=== PATIENT | female | born 1970 | race African-American/Black ===

== ENCOUNTER 2023-01-23 08:07 | Outpatient (REF) | payer BC, SELFPAY ==
--- NOTE | ~2023-01-23 | XR_ITS ---
EXAMINATION: XR KNEE, RIGHT CLINICAL INFORMATION: Pain in right knee COMPARISON: None available. TECHNIQUE: Four views of the right knee. FINDINGS: The patient is status post right total knee replacement with patellar button. There is no fracture or periprosthetic lucency. No joint effusion. Joint spaces are maintained. No abnormal soft tissue calcification. XR/XR knee RT 3V IMPRESSION: Right total knee replacement without hardware complication.
--- NOTE | ~2023-01-23 | XR_ITS ---
EXAMINATION: XR KNEE, LEFT CLINICAL INFORMATION: Pain in left knee COMPARISON: None available. TECHNIQUE: Four views of the left knee. FINDINGS: There is a left total knee replacement with patellar button. There is no fracture or periprosthetic lucency. 0.7 cm ossific or calcific density is seen posterior-lateral to the knee joint. This raises the question of a loose body within the joint. XR/XR knee LT 3V IMPRESSION: 1. Left total knee replacement without evidence of hardware complication. 2. 0.7 cm ossific or calcific density posterior-lateral to the knee joint raises the question of a loose body within the joint.
== END 2023-01-23 08:08 | disposition home or self-care (01) ==
LOC: HO.HOSX 08:07
PROVIDERS: Visit Provider Orthopaedic Surgery
DX: M25.561 Pain in right knee (principal); M25.562 Pain in left knee
CPT/HCPCS: 73562

== ENCOUNTER 2023-01-23 11:53 | Outpatient (AMB) | payer BC, SELFPAY ==
--- NOTE | 2023-01-23 11:58 | MHC.OFFVIS ---
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 She reports mild to moderate discomfort in both of her knees, right greater than left. She did do quite a bit of dancing while she was in [place] over the last few weeks. She denies any fevers or chills. She does not take any medicines for her discomfort. 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 Physical Exam Vital Signs: BMI result Body Mass Index 39.7 Const Other: Well-nourished well-developed very friendly female awake alert and oriented x3 in no acute distress Extrem Other: Bilateral lower extremity examination shows good capillary refill, no skin lesions noted, normal sensation light touch Bilateral knee examination shows that the surgical incisions are well healed, no erythema, full active extension and flexion to 120 degrees, her patellae track well Results Reviewed Results Reviewed: X-rays of the patient's bilateral knees taken today show total knee arthroplasties in good position with no signs of loosening, no acute bony abnormalities Assessment & Plan Assessment & Plan (1) Right knee pain: Code(s): M25.561 - Pain in right knee (2) Left knee pain: Code(s): M25.562 - Pain in left knee Plan Ms. Payne continues to do well after undergoing bilateral total knee arthroplasty surgeries. She will continue with her home exercise program. She does noted take antibiotics before any dental work. She will contact me prior to her follow-up appointment in 3 months should any questions or concerns arise. Feel free to call me at any time should questions regarding her orthopedic management arise. I spent 22 minutes in reviewing the patient's records and imaging studies, seeing the patient and documenting in the medical record. Orders: Orders XR knee LT 3V Today M25.562 - Pain in left knee XR knee RT 3V Today M25.561 - Pain in right knee Medications: New amoxicillin Take four tabs (2,000 mg) one hour before any dental work 500 mg PO ONCE 20 tabs 0RF oxycodone-acetaminophen 5-325 mg (Percocet) Partial Fill upon patient request. 1 tab PO Q8H PRN 30 tabs 0RF pain Coding Level of Care Code Est Pt Level 2 (13178) Diagnoses Right knee pain M25.561 Left knee pain M25.562
[2023-01-23 12:17] VITALS: BMI 39.7
== END 2023-01-23 12:49 | disposition home or self-care (01) ==
PROVIDERS: PCP Pediatrics; Visit Provider Orthopaedic Surgery
DX: M25.561 Pain in right knee (principal); M25.562 Pain in left knee
CPT/HCPCS: 99212

== ENCOUNTER 2023-03-13 08:46 | Outpatient (AMB) | payer BC, SELFPAY ==
--- NOTE | 2023-03-13 08:48 | A.OFFVIS_ITS ---
Intake Intake Visit Reasons: OV- RT Knee pain Intake Note: Pt presents to the office today for right knee pain. Pt states she fell on her right knee on February and is having pain and swelling since falling. She states that knee has always been the more painful but since falling its worse. Pt states she has been elevating and icing her knee and she states it helped slightly but its still swollen and tender. She states she just wants to make sure everything is okay since she fell directly on her right knee. 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 Physical Exam Const Other: Well-nourished well-developed very friendly female awake alert and oriented x3 in no acute distress Extrem Other: Bilateral lower extremity examination shows good capillary refill, no skin lesions noted, normal sensation light touch Right knee examination shows that the surgical incision is well healed, no eryt ev, full active extension flexion 115 degrees, mild tenderness over her patellar tendon, no instability Results Reviewed Results Reviewed: X-rays of the patient's right knee taken today show a total knee arthroplasty good position with no signs of loosening, no acute bony abnormalities Assessment & Plan Assessment & Plan (1) Right knee pain: Code(s): M25.561 - Pain in right knee Plan: Ms. Payne presents with right knee pain and swelling most likely due to soft tissue and bony contusion after recently falling directly onto her right knee. She does not seem to have suffered any damage to her total knee arthroplasty. She is encouraged to continue with her home stretching program to prevent stiffness. The patient has states that she is bothered by the fact that is her right knee is ?more knock kneed? Then as her left knee. She questions whether not it is another surgery could correct this. I discussed with the patient the fact that is if further surgery did place her knee into too much varus alignment it could possibly shorten the life span of the arthroplasty especially in light of her size. Patient questions whether not she should seen a 2nd opinion regarding further surgery close to her home at [facility]. I have no problem with this. She will contact me prior to her annual follow-up appointment should any further questions or concerns arise. Orders: Orders XR knee RT 3V Today M25.561 - Pain in right knee Coding Level of Care Code Est Pt Level 2 (69457) Diagnoses Right knee pain M25.561
== END 2023-03-13 09:30 | disposition home or self-care (01) ==
PROVIDERS: PCP Pediatrics; Visit Provider Orthopaedic Surgery
DX: M25.561 Pain in right knee (principal)
CPT/HCPCS: 99212

== ENCOUNTER 2023-03-13 08:46 | Outpatient (REF) | payer BC, SELFPAY ==
--- NOTE | ~2023-03-13 | XR_ITS ---
EXAMINATION: XR KNEE, RIGHT CLINICAL INFORMATION: Pain. COMPARISON: None available. TECHNIQUE: AP, lateral and sunrise views of the right knee are submitted. FINDINGS: Prosthetic components of the total knee arthroplasty are appropriately aligned without periprosthetic fracture or abnormal lucency. No component migration. No joint effusion. XR/XR knee RT 3V IMPRESSION: Appropriate alignment of the right total knee arthroplasty without evidence of complications.
== END 2023-03-13 08:47 | disposition home or self-care (01) ==
LOC: HO.HOSX 08:46
PROVIDERS: PCP Pediatrics; Visit Provider Orthopaedic Surgery
DX: M25.561 Pain in right knee (principal); Z79.899 Other long term (current) drug therapy; Z79.891 Long term (current) use of opiate analgesic
CPT/HCPCS: 73562

== ENCOUNTER 2023-09-11 08:31 | Outpatient (AMB) | payer BC, SELFPAY ==
[2023-09-11 08:39] VITALS: BMI 39.7
--- NOTE | 2023-09-11 08:39 | A.OFFVIS_ITS ---
Intake Vital Signs 09/11/23 08:39 Height 5 ft 11 in Weight 285 lb BMI 39.7 Intake Visit Reasons: OV- B/L knee pain Intake Note: Shaquille is a 52 year old female who presents with bilateral knee pain. The patient has undergone bilateral total knee replacement surgeries in the past. She reports minimal discomfort in her left knee. She describes her right knee pain as achy in nature. She did see an orthopedic surgeon near her home in [place] and was told that the discomfort is most likely due to muscle weakness. She was sent for gait analysis. She continues to exercise as much as possible. She does ride the stationary bike at the gym. She takes oxycodone every few days when she aggravates her right knee. 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 Physical Exam Vital Signs: BMI result Body Mass Index 39.7 Const Other: Well-nourished well-developed very friendly female awake alert and oriented x3 in no acute distress Extrem Other: Bilateral lower extremity examination shows good capillary refill, no skin lesions noted, normal sensation light touch Bilateral knee examination shows that the surgical incisions are well healed, no erythema, full active extension and flexion to 120 degrees, her patellae track well Results Reviewed Results Reviewed: X-rays of the patient's bilateral knee show total knee arthroplasties in good position with no signs of loosening, no acute bony abnormalities Assessment & Plan Assessment & Plan (1) Right knee pain: Code(s): M25.561 - Pain in right knee Plan Ms. Payne presents with bilateral knee discomfort, right greater than left, after undergoing bilateral total knee replacement surgeries of unclear etiology. Thus, I will arrange for the patient to have a follow-up appointment with Dr. Zelaya from pain management to see whether or not she is a candidate for a nerve block procedure which may help diminish her discomfort. The patient will continue with her home exercise program in the meantime. She will contact me prior to her follow-up appointment in 3 months should her symptoms worsen in any way. I spent 22 minutes in reviewing the patient's records and imaging studies, seeing the patient and documenting in the medical record. Orders: Orders XR knee LT 3V Today M25.562 - Pain in left knee XR knee RT 3V Today M25.561 - Pain in right knee Referrals Pain Management Referral M25.561 - Pain in right knee Medications: Refilled oxycodone-acetaminophen 5-325 mg (Percocet) Partial Fill upon patient request. 1 tab PO Q8H PRN 30 tabs 0RF pain Coding Level of Care Code Est Pt Level 2 (59270) Diagnoses Right knee pain M25.561
== END 2023-09-11 09:07 | disposition home or self-care (01) ==
PROVIDERS: PCP Pediatrics; Visit Provider Orthopaedic Surgery
DX: M25.561 Pain in right knee (principal)
CPT/HCPCS: 99213

== ENCOUNTER 2023-09-11 16:48 | Outpatient (REF) | payer BC, SELFPAY ==
--- NOTE | ~2023-09-11 | XR_ITS ---
EXAMINATION: XR KNEE, BILATERAL CLINICAL INFORMATION: Bilateral knee pain. COMPARISON: Right knee 03/13/2023, bilateral knees 01/23/2023. TECHNIQUE: 3 views each knee. FINDINGS: LEFT: Left total knee replacement is present with prosthetic components in good position. Again seen is a small 14 mm ossific density projecting posterior to the knee seen only on the lateral view. No fractures. No joint effusion. RIGHT: A right total knee replacement is present with prosthetic components in good position. Again seen is a small 6 mm ossific density projecting posterior to the knee seen only on the lateral view. No fractures. No joint effusion. XR/XR knee LT 3V IMPRESSION: Bilateral total knee replacements with prosthetic components in good position. No acute finding.
--- NOTE | ~2023-09-11 | XR_ITS ---
EXAMINATION: XR KNEE, BILATERAL CLINICAL INFORMATION: Bilateral knee pain. COMPARISON: Right knee 03/13/2023, bilateral knees 01/23/2023. TECHNIQUE: 3 views each knee. FINDINGS: LEFT: Left total knee replacement is present with prosthetic components in good position. Again seen is a small 14 mm ossific density projecting posterior to the knee seen only on the lateral view. No fractures. No joint effusion. RIGHT: A right total knee replacement is present with prosthetic components in good position. Again seen is a small 6 mm ossific density projecting posterior to the knee seen only on the lateral view. No fractures. No joint effusion. XR/XR knee RT 3V IMPRESSION: Bilateral total knee replacements with prosthetic components in good position. No acute finding.
== END 2023-09-11 16:49 | disposition home or self-care (01) ==
LOC: HO.HOSX 16:48
PROVIDERS: Visit Provider Orthopaedic Surgery
DX: M25.561 Pain in right knee (principal); M25.562 Pain in left knee
CPT/HCPCS: 73562

== ENCOUNTER 2023-09-17 10:32 | Outpatient (AMB) | payer BC, SELFPAY ==
--- NOTE | 2023-09-17 10:37 | A.OFFVIS_ITS ---
Intake Vital Signs 09/17/23 10:38 Height 5 ft 11 in Weight 282 lb BMI 39.3 BP 145/60 H Blood Pressure Location Lt brachial Position Sitting Respiration 12 Pulse 96 Pulse Source Pulse Oximeter Pulse Oximetry (%) 96 Oxygen Delivery Method Room Air Intake Visit Reasons: possible nerve block? Allergies No Known Allergies Allergy (Verified 09/17/23 10:40) Medication List - Last Reconciled 09/17/23 by Tatyana Brand LPN albuterol sulfate 90 mcg/actuation 2 puffs inhalation Q4H amoxicillin 500 mg PO ONCE budesonide-formoterol 160-4.5 mcg/actuation inhalation oxycodone-acetaminophen 5-325 mg (Percocet) 1 tab PO Q8H PRN semaglutide (Ozempic) 0.5 mg subcut QWEEK HPI possible nerve block? HPI Details 52-year-old female who presents today to the office for a possible nerve block. The patient reports bilateral knee pain (R>L). She fell on her right knee on March 01, 2023, and has had pain and swelling since falling. She has undergone bilateral total knee replacement surgeries in the past. She describes her pain as aching sensations in nature. The patient reports episodes of swelling in the infrapatellar region of the right knee. The symptoms happen pretty frequently, and it is painful when they happen. The pain is rated at 7-8/10 in intensity. It is constant in nature and associated with numbness and burning sensations. Movements make it worse. She has been using Percocet and Tylenol/ibuprofen, which take the edge away. She did see an orthopedic surgeon near her home in [place] and was told that the discomfort was most likely due to muscle weakness. She underwent a gait analysis. She continues to exercise as much as possible. She does ride the stationary bike at the gym. She takes oxycodone every few days when she aggravates her right knee. She states that she has been elevating and icing her knee with minimal benefit. She is planning a vacation at the end of November 2023. 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 Alert and oriented. Mood and affect appropriate. Follows and participates in conversation appropriately. Respiratory effort is unlabored. Able to transition from sit to stand unassisted. Ambulates with bilaterally normal heel strike and toe off. There is a well-healed midline incision overlying both knees. The right knee is tender to palpation to superficial palpation on the medial aspect. Results Reviewed Results Reviewed: 09/11/23: XR KNEE, BILATERAL FINDINGS: LEFT: Left total knee replacement is present with prosthetic components in good position. Again seen is a small 14 mm ossific density projecting posterior to the knee seen only on the lateral view. No fractures. No joint effusion. RIGHT: A right total knee replacement is present with prosthetic components in good position. Again seen is a small 6 mm ossific density projecting posterior to the knee seen only on the lateral view. No fractures. No joint effusion. IMPRESSION: Bilateral total knee replacements with prosthetic components in good position. No acute finding. Assessment & Plan Assessment & Plan (1) Right knee pain: Code(s): M25.561 - Pain in right knee (2) Hx of total knee replacement: Code(s): Z96.659 - Presence of unspecified artificial knee joint Plan We discussed temporary nerve stimulator vs. permanent nerve stimulator as possible treatment options. We will schedule her for a trial of right temporary saphenous nerve stimulator. Discussed the risks and benefits of the procedure with the patient in detail. All questions were answered. The patient is on board with the plan. Justification for interventional therapy: ? Patient with average pain > 6/10 ? Patient has exhausted conservative therapy ? Patient unable to tolerate physical therapy due to pain Scribed for Dr. Zelaya by Marco Antonio Green, emergency medical dispatcher, on 09/17/2023. I, Dr. Zelaya, have personally reviewed and agree with the information entered by the scribe. Coding Level of Care Code New Pt Level 4 (76649) Diagnoses Right knee pain M25.561 Hx of total knee replacement Z96.659
[2023-09-17 10:38] VITALS: BP 145/60; PULSE 96; RESP 12; O2SAT 96; BMI 39.3
== END 2023-09-17 11:36 | disposition home or self-care (01) ==
PROVIDERS: PCP Pediatrics; Visit Provider Internal Medicine
DX: M25.561 Pain in right knee (principal); Z96.659 Presence of unspecified artificial knee joint
CPT/HCPCS: 99204

== ENCOUNTER → 2023-09-17 10:32 | Outpatient (BNVA) | payer BC, SELFPAY | PROVIDERS: PCP Pediatrics; Visit Provider Internal Medicine ==

== ENCOUNTER 2024-01-01 08:36 | Outpatient (AMB) | payer BC, SELFPAY ==
--- NOTE | 2024-01-01 08:37 | MHC.OFFVIS ---
Vital Signs 01/01/24 08:39 Height 5 ft 11 in Weight 280 lb BMI 39.0 Intake Visit Reasons: OV-B/L knee pain-follow up Intake Note: Lesley is a 53 year who presents today with complaints of intermittent pain in her right knee. She has undergone bilateral total knee replacement surgeries in the past. She denies any pain in her left knee. She continues to walk 8,000 to 10,000 steps per day for exercise. She also goes to the gym and uses either the stationary bike or the treadmill. She denies any fevers or chills. She takes Motrin and intermittently oxycodone for her discomfort. 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 Payne continues to do fairly well after undergoing bilateral total knee replacement surgeries. At this point her symptoms in her right knee continue to improve with exercise. She does know to take antibiotics before any dental work. She will contact me prior to her annual follow-up appointment should her symptoms worsen in any way. Feel free to call me at any time should questions regarding her orthopedic management arise. I spent 20 minutes in reviewing the patient's records and imaging studies, seeing the patient and documenting in the medical record. Coding Level of Care Code Est Pt Level 3 (97148) Diagnoses Right knee pain M25.561
[2024-01-01 08:39] VITALS: BMI 39.0
== END 2024-01-01 09:00 | disposition home or self-care (01) ==
PROVIDERS: PCP Pediatrics; Visit Provider Orthopaedic Surgery
DX: M25.561 Pain in right knee (principal)
CPT/HCPCS: 99213

== ENCOUNTER → 2024-01-01 08:36 | Outpatient (BNVA) | payer BC, SELFPAY | PROVIDERS: PCP Pediatrics; Visit Provider Orthopaedic Surgery ==

== ENCOUNTER 2024-04-02 08:50 | Outpatient (AMB) | payer BC, SELFPAY ==
--- NOTE | 2024-04-02 08:52 | MHC.OFFVIS ---
Intake Visit Reasons: O/V B/L knee follow up Intake Note: Lesley is a 53 year who presents today with complaints of intermittent pain in her right knee. She has undergone bilateral total knee replacement surgeries in the past. She denies any pain in her left knee. She continues to walk 8,000 steps per day for exercise. She also goes to the gym and uses either the stationary bike or the treadmill. She denies any fevers or chills. She takes Motrin and intermittently oxycodone for her discomfort. 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 Const Other: Well-nourished well-developed very friendly female awake alert and oriented x3 in no acute distress Extrem Other: Bilateral lower extremity examination shows good capillary refill, no skin lesions noted, normal sensation light touch Bilateral knee examination shows that the surgical incisions are well healed, no erythema, full active extension and flexion to 120 degrees, her patellae track well Assessment & Plan Assessment & Plan (1) Right knee pain: Code(s): M25.561 - Pain in right knee Category: Medical (2) Left knee pain: Code(s): M25.562 - Pain in left knee Category: Medical Plan Ms. Payne continues to do fairly well after undergoing bilateral total knee replacement surgery. She will continue with her exercise program. She does know to take antibiotics before any dental work. She will contact me prior to her annual follow-up appointment should any questions or concerns arise. I spent 21 minutes in reviewing the patient's records and imaging studies, seeing the patient and documenting in the medical record. Orders: Orders XR knee LT 3V Today M25.562 - Pain in left knee XR knee RT 3V Today M25.561 - Pain in right knee Coding Level of Care Code Est Pt Level 3 (46594) Complex EM visit Add On G2211 Diagnoses Right knee pain M25.561 Left knee pain M25.562
== END 2024-04-02 09:07 | disposition home or self-care (01) ==
PROVIDERS: PCP Pediatrics; Visit Provider Orthopaedic Surgery
DX: M25.561 Pain in right knee (principal); Z96.653 Presence of artificial knee joint, bilateral
CPT/HCPCS: 99213

== ENCOUNTER 2024-09-30 08:29 | Outpatient (AMB) | payer BC, SELFPAY ==
[2024-09-30 08:41] VITALS: BMI 39.0
--- NOTE | 2024-09-30 08:41 | MHC.OFFVIS ---
Vital Signs 09/30/24 08:41 Height 5 ft 11 in Weight 280 lb BMI 39.0 Intake Visit Reasons: OV-B/L knee follow up Intake Note: Lesley is a 53 year who presents today for bilateral knee pain follow up status post bilateral total knee replacement surgeries in the past. Patient reports she is doing okay but still struggles with her right knee from time to time. The patient states that she was able to go hiking while vacationing in [place]. She denies any fevers or chills. She denies any locking or giving way. 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 Physical Exam Vital Signs: BMI result Body Mass Index 39.0 Const Other: Well-nourished well-developed very friendly female awake alert and oriented x3 in no acute distress Extrem Other: Bilateral lower extremity examination shows good capillary refill, no skin lesions noted, normal sensation light touch Bilateral knee examination shows that the surgical incisions are well healed, no erythema, full active extension and flexion to 120 degrees, her patellae track well Results Reviewed Results Reviewed: X-rays of the patient's bilateral knees taken today show total knee arthroplasties in good position with no signs of loosening, no acute bony abnormalities Assessment & Plan Assessment & Plan (1) Right knee pain: Code(s): M25.561 - Pain in right knee Category: Medical (2) Left knee pain: Code(s): M25.562 - Pain in left knee Category: Medical Plan Ms. Payne continues to do well after undergoing bilateral total knee replacement surgeries. She will continue with her home exercise program. She does know to take antibiotics before any dental work. She will contact me prior to her annual follow-up appointment should any questions or concerns arise. Feel free to call me at any time should questions regarding her orthopedic management arise. I spent 20 minutes in reviewing the patient's records and imaging studies, seeing the patient and documenting in the medical record. Orders: Orders XR knee LT 3V Today M25.562 - Pain in left knee XR knee RT 3V Today M25.561 - Pain in right knee Coding Level of Care Code Est Pt Level 3 (01524) Complex EM visit Add On G2211 Diagnoses Right knee pain M25.561 Left knee pain M25.562
== END 2024-09-30 09:09 | disposition home or self-care (01) ==
LOC: HO.HOS 08:30
PROVIDERS: PCP Pediatrics; Visit Provider Orthopaedic Surgery
DX: M25.561 Pain in right knee (principal); M25.562 Pain in left knee; Z96.653 Presence of artificial knee joint, bilateral
CPT/HCPCS: 99213

== ENCOUNTER → 2024-09-30 08:44 | Outpatient (BNV) | payer BC, SELFPAY | PROVIDERS: Visit Provider Radiology Diagnostic Radiology | DX: M25.561 Pain in right knee (principal); M25.562 Pain in left knee | CPT/HCPCS: 73562 ==

== ENCOUNTER 2024-09-30 09:37 | Outpatient (REF) | payer BC, SELFPAY ==
--- NOTE | ~2024-09-30 | XR_ITS ---
CLINICAL HISTORY: M25.561 - Pain in right knee Right knee three views Comparison: None Findings: No acute fracture or dislocation noted. No significant joint effusion identified. Knee prosthesis demonstrates normal alignment. There is no evidence for component loosening. Impression: No acute bony abnormality This document has been electronically signed by: Chucky Mays MD on 09/30/2024 18:26:44
--- NOTE | ~2024-09-30 | XR_ITS ---
CLINICAL HISTORY: M25.562 - Pain in left knee Left knee three views Comparison: None Findings: No acute fracture or dislocation noted. No significant joint effusion identified. Knee prosthesis demonstrates normal alignment. There is no evidence for component loosening. Impression: No acute bony abnormality This document has been electronically signed by: Chucky Mays MD on 09/30/2024 18:27:41
== END 2024-09-30 09:38 | disposition home or self-care (01) ==
LOC: HO.HOSX 09:37
PROVIDERS: Visit Provider Orthopaedic Surgery
DX: T84.84XD Pain due to internal orthopedic prosthetic devices, implants and grafts, subsequent encounter (principal); Z96.653 Presence of artificial knee joint, bilateral
CPT/HCPCS: 73562